=== PATIENT | female | born 1935 | race Two or more races ===

== ENCOUNTER 2017-07-30 10:22 | Outpatient (CLI) | payer OTHER | END 2017-07-30 15:11 | disposition home or self-care (01) | LOC: EDBD 10:22 → RAD 501 10:22 | DX: S40.011A Contusion of right shoulder, initial encounter (principal) ==

== ENCOUNTER 2018-01-06 08:21 | Outpatient (CLI) | payer OTHER ==
[~2018-01-06] VITALS: Ht 152.4 cm; Wt 54.4 kg
== END 2018-01-06 09:26 | disposition home or self-care (01) ==
LOC: OFIC 805 08:21
DX: H91.8X3 Other specified hearing loss, bilateral (principal); H93.12 Tinnitus, left ear; R49.0 Dysphonia; K21.0 Gastro-esophageal reflux disease with esophagitis

== ENCOUNTER 2018-01-06 10:34 | Outpatient (CLI) | payer OTHER | END 2018-01-06 10:37 | disposition home or self-care (01) | LOC: MAMO-SONO 10:34 | DX: Z12.31 Encounter for screening mammogram for malignant neoplasm of breast (principal); Z87.898 Personal history of other specified conditions; N64.4 Mastodynia ==

== ENCOUNTER 2018-01-13 10:46 | Outpatient (CLI) | payer OTHER ==
[~2018-01-13] VITALS: Ht 152.4 cm; Wt 54.4 kg
== END 2018-01-13 11:00 | disposition home or self-care (01) ==
LOC: OFIC 805 10:46
DX: H93.12 Tinnitus, left ear (principal); H90.3 Sensorineural hearing loss, bilateral

== ENCOUNTER 2022-05-02 07:38 | Emergency (ER) | payer OTHER ==
[~2022-05-02] VITALS: Ht 157.5 cm; Wt 56.2 kg
[2022-05-02] MEDS ORDERED: SIMVASTATIN20 MG PO (07:51)
[2022-05-02] MEDS ORDERED: AMLODIPINE BESYL5 MG PO (07:51)
== END 2022-05-02 09:05 | disposition home or self-care (01) ==
LOC: ER 07:38 → EDBD 07:42 → ER 07:42
DX: I10 Essential (primary) hypertension (principal); F41.9 Anxiety disorder, unspecified; Z88.2 Allergy status to sulfonamides; Z91.041 Radiographic dye allergy status